=== PATIENT | female | born 1990 | race Caucasian/White ===

== ENCOUNTER 2019-04-19 05:08 | Day surgery (SDC) | payer MEDICARE, MEDICAID ==
[2019-04-16 13:57] LABS: BASOPHILS # (AUTO) 0.1 X10'3 (0-0.2); BASOPHILS % (AUTO) 0.5 % (0-1); EOSINOPHILS # (AUTO) 0.1 X10'3 (0-0.9); EOSINOPHILS % (AUTO) 1.1 % (0-6); LYMPHOCYTES # (AUTO) 3.4 X10'3 (1.1-4.8); LYMPHOCYTES % (AUTO) 36.3 % (21-51); MEAN CORPUSCULAR HGB CONC 33.8 g/dL (33.0-36.5); MEAN CORPUSCULAR VOLUME 85.7 FL (78-98); MEAN PLATELET VOLUME 6.3 FL (7.4-10.4); MONOCYTES # (AUTO) 0.7 X10'3 (0-0.9); MONOCYTES % (AUTO) 7.4 % (2-12); NEUTROPHILS # (AUTO) 5.1 X10'3 (1.8-7.7); NEUTROPHILS % (AUTO) 54.7 % (42-75); PRE OP HEMATOCRIT 42.8 % (35.0-45.0); PRE OP HEMOGLOBIN 14.5 g/dL (12.0-16.0); PRE OP PLATELET COUNT 381 X10'3 (140-440); RED CELL DISTRIBUTION WIDTH 13.3 % (11.5-14.5)
[2019-04-16 14:31] LABS: HCG SERUM QL NEGATIVE
[2019-04-19] VITALS (9 sets, daily range): BP systolic 122–139; BP diastolic 81–117
[~2019-04-19] VITALS: Ht 172.7 cm; Wt 103.8 kg
[~2019-04-19 05:08] MED LIST: CETI10TA14 PO; FLUT16SP20 NS; LEVO125T8 PO; OMEP20CA11 PO; SERT100T10 PO
[2019-04-19] MEDS ORDERED: LIDOcaine 1% (10mg/ml) 2ml vial ONE (05:39)
[2019-04-19] MEDS: ringers solution, lacted 1,000 ML IV SCH ×2 (05:53→06:24)
[2019-04-19] MEDS ORDERED: famotidine 20mg tablet PO ONE (06:10)
[2019-04-19] MEDS ORDERED: ROPIVAcaine 0.5% (5mg/ml) 30ml vial ONE (06:37)
[2019-04-19] MEDS ORDERED: ringers solution, lacted 1,000 ML IV SCH (07:22)
[2019-04-19] MEDS ORDERED: proCHLORperazine 10 MG/2 ml inj IV PRN (07:25)
[2019-04-19] MEDS ORDERED: ondansetron/PF 4mg/2ml inj IV PRN (07:25)
[2019-04-19] MEDS ORDERED: meperidine/PF 25mg/ml syringe IV PRN ×3 (07:25)
[2019-04-19] MEDS ORDERED: morphine 4 MG/ML inj SYRINge IV PRN ×2 (07:25)
[2019-04-19] MEDS ORDERED: fentaNYL/PF 50MCG/1 ML 2ML syringe ONE (07:40)
[2019-04-19] MEDS ORDERED: midazolam 2 mg/2 ml injection ONE (07:41)
[2019-04-19] MEDS ORDERED: LIDOcaine 2% (20mg/ml) 5ml vial ONE (07:43)
[2019-04-19] MEDS ORDERED: rocuronium 10mg/ml inj IV ONE (07:43)
[2019-04-19] MEDS ORDERED: ondansetron/PF 4mg/2ml inj ONE (07:43)
[2019-04-19] MEDS ORDERED: propofol inj 20 ML IV ONE (07:43)
[2019-04-19] MEDS ORDERED: sevoflurane 250ml liquid IH ONE (09:21)
[2019-04-19] MEDS ORDERED: glycopyrrolate 0.2mg/ml inj ONE (09:21)
[2019-04-19] MEDS ORDERED: neostigmine methylsulfate 1 MG/ML 10ml vial ONE (09:21)
[2019-04-19] MEDS ORDERED: atropine 0.4 mg/ml 20ml vial ONE (10:09)
[2019-04-19] MEDS ORDERED: ketorolac trometh. 30mg/ml inj. ONE (10:19)
[2019-04-19] MEDS ORDERED: oxyCODONE/APAP 5-325mg tablet PO PRN ×2 (10:20)
--- NOTE | 2019-04-19 10:23 | NUR ---
Received from OR via , accompanied by Anesthesiologist DR ANDERSON and report given by Anesthesiolgist. AWAKENS TO VOICE. VITALS STABLE. DRESSINGS DI. C/O SEVERE PAIN. WILL MEDICATE. ABD SOFT.
--- NOTE | 2019-04-19 11:33 | NUR ---
AWAKE AND ORIENTED. VITALS STABLE. DRESSINGS DI. DEBRA APIN. HOME WITH A FRIEND AT THIS TIME.
== END 2019-04-19 11:33 | disposition home or self-care (01) ==
LOC: PAS 05:08
PROVIDERS: ATTEND Obstetrics & Gynecology
DX: Z30.2 Encounter for sterilization (principal); E03.9 Hypothyroidism, unspecified; E66.9 Obesity, unspecified; Z68.34 Body mass index [BMI] 34.0-34.9, adult; Z88.0 Allergy status to penicillin; Z88.8 Allergy status to other drugs, medicaments and biological substances; Z79.899 Other long term (current) drug therapy
CPT/HCPCS: 36415; 58661; 82948; 84703; 85025; 86885; J0461; J1885; J2001; J2175; J2250; J2405; J2704; J2710; J3010; J7120; A4618; A6250; A7000; J2795; J3490